=== PATIENT | male | born 1985 | race Caucasian/White ===

== ENCOUNTER 2016-11-16 12:56 | Inpatient (IN) | payer BC ==
[~2016-11-16] VITALS: Ht 167.6 cm; Wt 77.1 kg
[2016-11-16 14:05] LABS: HEMATOCRIT 25.9 % (38.0-50.0); MCH 17.2 PG (29.0-34.0); MCV 63.6 FL (86-99); MEAN PLAT.VOLUME 9.4 uM^3 (9.0-12.4); PLATELET COUNT 615 K/uL (156-360); RBC DIS.WIDTH-CV 18.4 % (11.8-14.6); RBC DIS.WIDTH-SD 41.1 % (39-53); RED BLOOD COUNT 4.07 M/uL (4.00-5.50); WHITE BLOOD COUNT 12.4 K/uL (4.1-10.2)
[2016-11-16 14:09] LABS: CHLORIDE 103 mEq/L (99-109); POTASSIUM 4.6 mEq/L (3.7-5.4); SODIUM 137 mEq/L (136-147)
[2016-11-16 14:11] LABS: GLUCOSE 99 mg/dL (70-99)
[2016-11-16 14:12] LABS: ANION GAP 10 MEQ/L (2-14)
[2016-11-16 14:13] LABS: TOTAL BILIRUBIN 0.4 mg/dL (0.0-1.0)
[2016-11-16 14:14] LABS: ALKALINE PHOSPHATASE 121 IU/L (3-129)
[2016-11-16 14:15] LABS: GFR ESTIMATE (CALCULATED) > 59 mL/min/
[2016-11-16 14:16] LABS: UREA NITROGEN (BUN) 13 mg/dL (9-23)
[2016-11-16 17:11] LABS: ADD MIUA? NO; BILIRUBIN NEGATIVE; BLOOD NEGATIVE; COLOR YELLOW ((YELLOW)); GLUCOSE (STRIP) 50; KETONES NEGATIVE; LEUKOCYTES NEGATIVE; NITRITE NEGATIVE; PROTEIN (STRIP) NEGATIVE; SPECIFIC GRAVITY 1.038 (1.000-1.030); UROBILINOGEN 0.2 MG/DL (0.2-1.0)
[2016-11-16] MEDS ORDERED: NAPROXEN500 MG PO (17:14)
[2016-11-16] MEDS ORDERED: IRON325 M1 PO (17:15)
[2016-11-16 17:18] LABS: UCUL ADDED? NO
[2016-11-16 22:16] VITALS: BP 135/63
[2016-11-17] VITALS (17 sets, daily range): BP systolic 104–122; BP diastolic 50–65
[2016-11-17 07:15] LABS: EOSINOPHIL (%) 1.7 % (0-5); EOSINOPHIL COUNT 0.2 K/uL (0-0.3); HEMATOCRIT 20.2 % (38.0-50.0); IMMATURE GRANULOCYTE (%) 0.6 % (0.0-0.7); IMMATURE GRANULOCYTE COUNT 0.1 K/uL; INSTRUMENT ABS NEUTROPHIL CT 7.2 K/uL; LYMPHOCYTE COUNT 0.7 K/uL (1.0-2.8); MCH 18.2 PG (29.0-34.0); MCHC 28.2 G/DL (30.0-36.0); MCV 64.3 FL (86-99); MEAN PLAT.VOLUME 9.4 uM^3 (9.0-12.4); MONOCYTE (%) 6.9 % (3-12); MONOCYTE COUNT 0.6 K/uL (0-0.8); NEUTROPHIL (%) 82.1 % (45-76); NEUTROPHIL COUNT 7.2 K/uL (1.8-6.4); PLATELET COUNT 466 K/uL (156-360); RBC DIS.WIDTH-CV 18.4 % (11.8-14.6); RBC DIS.WIDTH-SD 42.5 % (39-53); WHITE BLOOD COUNT 8.7 K/uL (4.1-10.2)
[2016-11-17 07:21] LABS: RED BLOOD COUNT 3.14 M/uL (4.00-5.50)
[2016-11-17 07:31] LABS: ANION GAP 6 MEQ/L (2-14); CHLORIDE 104 MEQ/L (99-109); GFR ESTIMATE (CALCULATED) > 59 mL/min/; GLUCOSE 97 mg/dL (70-99); POTASSIUM 4.7 MEQ/L (3.7-5.4); SAMPLE HEMOLYSIS CHECK 0; SAMPLE ICTERIC CHECK 0; SAMPLE LIPEMIA CHECK 0; SODIUM 135 MEQ/L (136-147); UREA NITROGEN (BUN) 9 mg/dL (9-23)
[2016-11-17 09:41] LABS: HEMATOCRIT 21.4 % (38.0-50.0); MCV 64.3 FL (86-99)
[2016-11-17 09:45] LABS: INTER. NORMALIZED RATIO 1.4; PROTHROMBIN TIME 15.6 SEC (10.2-12.9)
[2016-11-17 09:48] LABS: PTT 23.6 SEC (25-37)
[2016-11-17 10:56] LABS: FERRITIN 195 NG/ML (22-322)
[2016-11-17 11:12] LABS: IRON < 10.0 MCG/DL (35-150)
[2016-11-17 11:13] LABS: IMM.RETIC FRACTION 22.8 % (3-19); RETIC HGB EQUIVALENT 17.7 (28-36); RETICULOCYTE COUNT 1.3 % (0.5-1.8)
[2016-11-17 15:41] LABS: INTERNAL CONTROL VALID? YES
[2016-11-17 16:37] LABS: HEMATOCRIT 23.9 % (38.0-50.0); MCV 67.3 FL (86-99)
[2016-11-17 21:55] LABS: EOSINOPHIL (%) 2.7 % (0-5); EOSINOPHIL COUNT 0.2 K/uL (0-0.3); HEMATOCRIT 24.1 % (38.0-50.0); IMMATURE GRANULOCYTE (%) 0.8 % (0.0-0.7); IMMATURE GRANULOCYTE COUNT 0.1 K/uL; LYMPHOCYTE COUNT 0.8 K/uL (1.0-2.8); MCH 20.2 PG (29.0-34.0); MCHC 29.5 G/DL (30.0-36.0); MCV 68.7 FL (86-99); MEAN PLAT.VOLUME 9.3 uM^3 (9.0-12.4); MONOCYTE COUNT 0.6 K/uL (0-0.8); NEUTROPHIL (%) 75.8 % (45-76); PLATELET COUNT 442 K/uL (156-360); RBC DIS.WIDTH-CV 22.2 % (11.8-14.6); RBC DIS.WIDTH-SD 54.4 % (39-53); RED BLOOD COUNT 3.51 M/uL (4.00-5.50); WHITE BLOOD COUNT 6.6 K/uL (4.1-10.2)
[2016-11-18] VITALS (8 sets, daily range): BP systolic 112–125; BP diastolic 53–66
[2016-11-18 07:46] LABS: EOSINOPHIL (%) 5.3 % (0-5); EOSINOPHIL COUNT 0.2 K/uL (0-0.3); HEMATOCRIT 25.4 % (38.0-50.0); IMMATURE GRANULOCYTE (%) 1.7 % (0.0-0.7); IMMATURE GRANULOCYTE COUNT 0.1 K/uL; INSTRUMENT ABS NEUTROPHIL CT 2.4 K/uL; LYMPHOCYTE COUNT 0.6 K/uL (1.0-2.8); MCH 19.5 PG (29.0-34.0); MCV 69.6 FL (86-99); MEAN PLAT.VOLUME 9.5 uM^3 (9.0-12.4); MONOCYTE COUNT 0.3 K/uL (0-0.8); NEUTROPHIL (%) 67.1 % (45-76); NEUTROPHIL COUNT 2.4 K/uL (1.8-6.4); PLATELET COUNT 383 K/uL (156-360); RBC DIS.WIDTH-CV 21.6 % (11.8-14.6); RBC DIS.WIDTH-SD 53.7 % (39-53); RED BLOOD COUNT 3.65 M/uL (4.00-5.50); WHITE BLOOD COUNT 3.6 K/uL (4.1-10.2)
[2016-11-18 07:58] LABS: ANION GAP 9 MEQ/L (2-14); CHLORIDE 105 MEQ/L (99-109); GFR ESTIMATE (CALCULATED) > 59 mL/min/; GLUCOSE 84 mg/dL (70-99); POTASSIUM 4.1 MEQ/L (3.7-5.4); SAMPLE HEMOLYSIS CHECK 0; SAMPLE ICTERIC CHECK 0; SAMPLE LIPEMIA CHECK 0; SODIUM 136 MEQ/L (136-147); UREA NITROGEN (BUN) 8 mg/dL (9-23)
[2016-11-18 09:13] LABS: INTERNAL CONTROL VALID? YES
[2016-11-18 09:36] LABS: C DIFF TOXIN NEGATIVE (NEGATIVE); PROBE CHECK PASS; SPECIMEN PROCESSING CONTROL PASS
[2016-11-18 15:49] LABS: HEMATOCRIT 30.1 % (38.0-50.0); MCV 71.3 FL (86-99)
[2016-11-18 21:43] LABS: MCV 70.8 FL (86-99)
[2016-11-19 00:21] VITALS: BP 109/69
[2016-11-19 07:28] VITALS: BP 108/55
[2016-11-19 07:31] VITALS: BP 108/66
[2016-11-19 07:33] LABS: EOSINOPHIL (%) 5.4 % (0-5); EOSINOPHIL COUNT 0.2 K/uL (0-0.3); HEMATOCRIT 30.8 % (38.0-50.0); IMMATURE GRANULOCYTE (%) 2.6 % (0.0-0.7); IMMATURE GRANULOCYTE COUNT 0.1 K/uL; INSTRUMENT ABS NEUTROPHIL CT 3.1 K/uL; LYMPHOCYTE COUNT 0.6 K/uL (1.0-2.8); MCH 21.2 PG (29.0-34.0); MCHC 30.2 G/DL (30.0-36.0); MCV 70.3 FL (86-99); MEAN PLAT.VOLUME 9.1 uM^3 (9.0-12.4); MONOCYTE (%) 6.1 % (3-12); MONOCYTE COUNT 0.3 K/uL (0-0.8); NEUTROPHIL (%) 72.4 % (45-76); NEUTROPHIL COUNT 3.1 K/uL (1.8-6.4); PLATELET COUNT 462 K/uL (156-360); RBC DIS.WIDTH-CV 22.6 % (11.8-14.6); RED BLOOD COUNT 4.38 M/uL (4.00-5.50); WHITE BLOOD COUNT 4.2 K/uL (4.1-10.2)
[2016-11-19 07:46] LABS: ANION GAP 9 MEQ/L (2-14); CHLORIDE 107 MEQ/L (99-109); GFR ESTIMATE (CALCULATED) > 59 mL/min/; GLUCOSE 91 mg/dL (70-99); POTASSIUM 4.3 MEQ/L (3.7-5.4); SAMPLE HEMOLYSIS CHECK 0; SAMPLE ICTERIC CHECK 0; SAMPLE LIPEMIA CHECK 0; SODIUM 138 MEQ/L (136-147); UREA NITROGEN (BUN) 7 mg/dL (9-23)
[2016-11-19 16:30] VITALS: BP 111/58
[2016-11-19 23:30] VITALS: BP 121/53
[2016-11-20 05:30] LABS: EOSINOPHIL (%) 6.4 % (0-5); EOSINOPHIL COUNT 0.3 K/uL (0-0.3); HEMATOCRIT 31.9 % (38.0-50.0); IMMATURE GRANULOCYTE (%) 2.8 % (0.0-0.7); IMMATURE GRANULOCYTE COUNT 0.1 K/uL; INSTRUMENT ABS NEUTROPHIL CT 2.7 K/uL; LYMPHOCYTE COUNT 0.8 K/uL (1.0-2.8); MCH 21.2 PG (29.0-34.0); MCHC 29.8 G/DL (30.0-36.0); MCV 71.2 FL (86-99); MEAN PLAT.VOLUME 9.5 uM^3 (9.0-12.4); MONOCYTE (%) 7.1 % (3-12); MONOCYTE COUNT 0.3 K/uL (0-0.8); NEUTROPHIL (%) 64.6 % (45-76); NEUTROPHIL COUNT 2.7 K/uL (1.8-6.4); PLATELET COUNT 487 K/uL (156-360); RBC DIS.WIDTH-CV 23.7 % (11.8-14.6); RBC DIS.WIDTH-SD 57.9 % (39-53); RED BLOOD COUNT 4.48 M/uL (4.00-5.50); WHITE BLOOD COUNT 4.2 K/uL (4.1-10.2)
[2016-11-20 05:37] LABS: ANION GAP 12 MEQ/L (2-14); CHLORIDE 109 MEQ/L (99-109); GFR ESTIMATE (CALCULATED) > 59 mL/min/; GLUCOSE 80 mg/dL (70-99); POTASSIUM 4.2 MEQ/L (3.7-5.4); SAMPLE HEMOLYSIS CHECK 0; SAMPLE ICTERIC CHECK 0; SAMPLE LIPEMIA CHECK 0; SODIUM 140 MEQ/L (136-147); UREA NITROGEN (BUN) 7 mg/dL (9-23)
[2016-11-20 07:55] VITALS: BP 117/68
[2016-11-20 11:45] VITALS: BP 110/58
[2016-11-20] MEDS ORDERED: DELZICOL400 M1 PO (12:07)
[2016-11-20] MEDS ORDERED: CIPRO500 MG PO (12:07)
[2016-11-20] MEDS ORDERED: IRON325 M1 PO (12:07)
[2016-11-20] MEDS ORDERED: METRONIDAZOLE500 MG PO (12:07)
[2016-11-20] MEDS ORDERED: PENTASA500 MG PO (16:13)
[2016-11-21 12:16] LABS: HGBE Erythrocyte Cnt 4.44 Mill/uL (4.20-5.80); HGBE Hemoglobin 9.4 g/dL (13.2-17.1); HGBE MCH 21.2 pg (27.0-33.0); HGBE MCV 69.8 FL (80.0-100.0); HGBE RDW 26.7 % (11.0-15.0)
[2016-11-23 11:32] LABS: POC NON-PRINT COM 1 ND
== END 2016-11-20 17:06 | disposition home or self-care (01) | DRG 385 ==
LOC: EME 12:56 → 2EAST 20:49 → 2EASTP 20:49 → EDOF 20:49 → ENRESERV 20:52 → 2EAST 22:10 → 2EASTP 11-19 08:31 → ENRESERV 11-19 08:31 → 2EASTP 11-20 17:06
PROVIDERS: Hospitalist; Internal Medicine Hematology & Oncology; Radiology Diagnostic Radiology; Specialist
PROC: 0W9H30Z Drainage of Retroperitoneum with Drainage Device, Percutaneous Approach (ICD-10-PCS; principal; 2016-11-17)
PROC: 30233N1 Transfusion of Nonautologous Red Blood Cells into Peripheral Vein, Percutaneous Approach (ICD-10-PCS; 2016-11-17)
DX: K50.014 Crohn's disease of small intestine with abscess (principal); K68.19 Other retroperitoneal abscess; K50.013 Crohn's disease of small intestine with fistula; K37 Unspecified appendicitis; B96.20 Unspecified Escherichia coli [E. coli] as the cause of diseases classified elsewhere; D50.0 Iron deficiency anemia secondary to blood loss (chronic); Z23 Encounter for immunization
CPT/HCPCS: 49406; 74177; 80048; 80053; 80375 90; 81003; 82272; 82607; 82728; 82746; 83021 90; 83540; 84466; 85014; 85018; 85025; 85025 91; 85027; 85045; 85610; 85730; 86850; 86900; 86901; 86920; 87040; 87070; 87075; 87076; 87077; 87177; 87185; 87186; 87205; 87329; 87493; 87506; 90686; 99281; 99285; J0692; J1644; J1756; J1885; J2270; J2543; J3010; J3370; J3430; J7030; J7040; J7050; P9016; S0028; S0030

== ENCOUNTER 2017-01-18 23:22 | Inpatient (IN) | payer BC ==
[~2017-01-18] VITALS: Ht 175.3 cm; Wt 77.1 kg
[~2017-01-18 23:22] MED LIST: AUGMENTIN875 MG PO; CIPRO500 MG PO; DELZICOL400 M1 PO; FEOSOL325 MG PO; IRON325 M1 PO; METRONIDAZOLE500 MG PO; NAPROXEN500 MG PO; PENTASA500 MG PO; TRAMADOL HCL50 MG PO
[2017-01-19 07:05] LABS: HEMATOCRIT 35.6 % (38.0-50.0); MCH 22.8 PG (29.0-34.0); MCHC 29.8 G/DL (30.0-36.0); MCV 76.7 FL (86-99); MEAN PLAT.VOLUME 9.2 uM^3 (9.0-12.4); PLATELET COUNT 615 K/uL (156-360); RBC DIS.WIDTH-CV 18.7 % (11.8-14.6); RED BLOOD COUNT 4.64 M/uL (4.00-5.50); WHITE BLOOD COUNT 6.8 K/uL (4.1-10.2)
[2017-01-19 07:09] VITALS: BP 115/66
[2017-01-19 13:58] VITALS: BP 97/46
[2017-01-19 15:10] VITALS: BP 98/42
[2017-01-19 19:37] VITALS: BP 115/60
[2017-01-19 23:38] VITALS: BP 111/52
[2017-01-20 03:44] VITALS: BP 102/49
[2017-01-20 03:45] VITALS: BP 108/77
[2017-01-20 06:33] LABS: ALKALINE PHOSPHATASE 55 IU/L (3-129); ANION GAP 6 MEQ/L (2-14); CHLORIDE 105 MEQ/L (99-109); GFR ESTIMATE (CALCULATED) > 59 mL/min/; GLUCOSE 86 mg/dL (70-99); MAGNESIUM 1.9 mg/dl (1.3-2.7); SAMPLE HEMOLYSIS CHECK 0; SAMPLE ICTERIC CHECK 0; SAMPLE LIPEMIA CHECK 0; SODIUM 138 MEQ/L (136-147); TOTAL BILIRUBIN 0.2 MG/DL (0.0-1.0); UREA NITROGEN (BUN) 7 mg/dL (9-23)
[2017-01-20 07:32] LABS: EOSINOPHIL (%) 0.8 % (0-5); HEMATOCRIT 26.4 % (38.0-50.0); IMMATURE GRANULOCYTE (%) 1.1 % (0.0-0.7); IMMATURE GRANULOCYTE COUNT 0.1 K/uL; INSTRUMENT ABS NEUTROPHIL CT 3.8 K/uL; LYMPHOCYTE COUNT 0.5 K/uL (1.0-2.8); MCH 23.2 PG (29.0-34.0); MCHC 29.9 G/DL (30.0-36.0); MCV 77.6 FL (86-99); MONOCYTE (%) 7.6 % (3-12); MONOCYTE COUNT 0.4 K/uL (0-0.8); NEUTROPHIL (%) 79.6 % (45-76); NEUTROPHIL COUNT 3.8 K/uL (1.8-6.4); RBC DIS.WIDTH-CV 18.9 % (11.8-14.6); RBC DIS.WIDTH-SD 53.8 % (39-53); WHITE BLOOD COUNT 4.8 K/uL (4.1-10.2)
[2017-01-20 07:47] VITALS: BP 119/57
[2017-01-20 11:21] LABS: MEAN PLAT.VOLUME 9.3 uM^3 (9.0-12.4); PLAT.SUFFICIENCY ADEQUATE
[2017-01-20 11:28] LABS: PLATELET COUNT 380 K/uL (156-360)
[2017-01-20 16:18] VITALS: BP 124/58
[2017-01-21 01:23] VITALS: BP 123/59
[2017-01-21 01:55] VITALS: BP 123/59
[2017-01-21 07:36] VITALS: BP 115/58
[2017-01-21 16:25] VITALS: BP 119/56
[2017-01-22 00:26] VITALS: BP 123/58
[2017-01-22 07:34] VITALS: BP 116/57
[2017-01-22 07:37] VITALS: BP 114/59
[2017-01-22 09:33] LABS: EOSINOPHIL (%) 1.6 % (0-5); EOSINOPHIL COUNT 0.1 K/uL (0-0.3); HEMATOCRIT 31.7 % (38.0-50.0); IMMATURE GRANULOCYTE (%) 0.4 % (0.0-0.7); INSTRUMENT ABS NEUTROPHIL CT 4.2 K/uL; LYMPHOCYTE COUNT 0.4 K/uL (1.0-2.8); MCH 22.8 PG (29.0-34.0); MCHC 29.3 G/DL (30.0-36.0); MCV 77.7 FL (86-99); MEAN PLAT.VOLUME 9.1 uM^3 (9.0-12.4); MONOCYTE (%) 5.2 % (3-12); MONOCYTE COUNT 0.3 K/uL (0-0.8); NEUTROPHIL COUNT 4.2 K/uL (1.8-6.4); PLATELET COUNT 459 K/uL (156-360); RBC DIS.WIDTH-SD 53.5 % (39-53); RED BLOOD COUNT 4.08 M/uL (4.00-5.50)
[2017-01-22] MEDS ORDERED: OXYCODONE-APAP1 EACH PO (09:56)
[2017-01-22 11:17] VITALS: BP 113/53
== END 2017-01-22 15:15 | disposition home or self-care (01) | DRG 330 ==
LOC: ENRESERV 23:22 → 2SOUTH 01-19 06:38 → 5EAST 01-19 06:38 → 2SOUTH 01-19 07:53 → SDC 01-19 11:11 → ENRESERV 01-19 11:30 → EDSTATUS 01-19 11:47 → 2SOUTH 01-19 11:48 → 5EAST 01-19 13:52 → 2SOUTH 01-19 14:44 → ENPENDDIS 01-22 → 5EAST 01-22 15:15
PROVIDERS: Physician Assistant Surgical; Surgery
PROC: 0DTH4ZZ Resection of Cecum, Percutaneous Endoscopic Approach (ICD-10-PCS; principal; 2017-01-19)
PROC: 0DNB4ZZ Release Ileum, Percutaneous Endoscopic Approach (ICD-10-PCS; principal; 2017-01-19)
PROC: 0DBB4ZZ Excision of Ileum, Percutaneous Endoscopic Approach (ICD-10-PCS; principal; 2017-01-19)
PROC: 0T768DZ Dilation of Right Ureter with Intraluminal Device, Via Natural or Artificial Opening Endoscopic (ICD-10-PCS; principal; 2017-01-19)
DX: K50.013 Crohn's disease of small intestine with fistula (principal); K66.0 Peritoneal adhesions (postprocedural) (postinfection); D50.9 Iron deficiency anemia, unspecified; Z80.0 Family history of malignant neoplasm of digestive organs; Z82.49 Family history of ischemic heart disease and other diseases of the circulatory system
CPT/HCPCS: 36415; 80053; 83735; 84100; 85025; 85027; 86850; 86900; 86901; 88307; C1758; C1769; J0131; J1100; J1170; J1650; J1885; J2250; J3010; J7120; S0030; S0074